=== PATIENT | female | born 1995 | race Caucasian/White ===

== ENCOUNTER 2023-08-29 15:58 | Emergency (ER) | payer MEDICAID, SELFPAY ==
[2023-08-29 16:03] VITALS: BP 123/79; PULSE 104; RESP 16; TEMP 37.2; O2SAT 98; BMI 28.5
--- NOTE | 2023-08-29 17:29 | ED_ITS ---
HPI - Skin/Abscess/Foreign Bdy General: Chief complaint: Skin/Abscess/Foreign Body Stated complaint: left knee pain, rednees, pus Time Seen by Provider: 08/29/23 17:23 Source: patient Mode of arrival: ambulatory Limitations: no limitations History of Present Illness: 27-year-old female who states she has garcia d an abscess to her left knee for the last 4 to 5 days states she was prescribed antibiotics but they got stolen. She has not had it incised either she has had some drainage to the site denies any fever she has had redness some slight pain but she denies any pain with ambulation. Denies any injuries Associated symptoms: Deny chills, fever(s), nausea or vomiting Review of Systems Const: Denies: fever(s), chills, body aches or change in appetite ENMT: Denies: throat pain or dental pain Card: Denies: chest pain Resp: Denies: dyspnea GI: Denies: abdominal pain, nausea, vomiting or diarrhea Musc: Denies: neck pain or back pain Skin/Breast: Reports: erythema; Denies: rash Neuro: Denies: headache(s) PFSH ED PFSH: Social History Smoking and tobacco/nicotine status: current every day tobacco/nicotine user cigarettes Packs smoked per day: 0.5 Alcohol intake: never Substance/Drug Use: current Substance/Drug use frequency: few times a month Female Reproductive History: Date of last menstrual period: 08/15/23 Physical Exam Const: COMMON NORMALS: no acute distress, patient oriented x3 and healthy appearing HENMT: COMMON NORMALS: normocephalic and atraumatic HEAD & SCALP: normocephalic and atraumatic Neck/C-Spine: COMMON NORMALS: full ROM and supple Chest: COMMONS NORMALS: normal inspection of the chest and normal palpation of entire chest wall Resp: COMMON NORMALS: normal respiratory effort Cardio: COMMON NORMALS: regular rate, regular rhythm and No murmurs present (Cardio) RATE: regular rate RHYTHM: regular rhythm Extremity: NARRATIVE EXTREMITY EXAM: Abscess noted to left knee the anterior portion does have some drainage from erythema any pain with range of motion no signs of septic joint Neuro: COMMON NORMALS: patient oriented x3, moves all extremities and no focal motor deficits Psych: COMMON NORMALS: mental status grossly normal, Normal thought process present and cooperative THOUGHT PROCESS: Normal thought process present Skin: COMMON NORMALS: no rashes or lesions noted and no wounds GENERAL SKIN EXAM: no rashes or lesions noted Procedures Abscess I/D Site: lower extremity Side (if applicable): left Local Anesthetic: lidocaine 1% Amount of anesthesia used (mL): 8 Technique: incised with #11 blade Irrigation: No Packing used?: none Course Vital Signs: Vital signs: Vital Signs Temperature 98.9 F 08/29/23 16:03 Pulse Rate 104 H 08/29/23 16:03 Respiratory Rate 16 08/29/23 16:03 Blood Pressure 123/79 08/29/23 16:03 Pulse Oximetry 98 08/29/23 16:03 Oxygen Delivery Me thod Room Air 08/29/23 16:03 MDM - Skin/Abscess/Foreign Bdy Medicial Decision Making Patient presents here with abscess to left knee she has no signs of a septic joint did incise and drain it we will place her on clindamycin she is to follow- up with her PCP return if worsening she understands agrees to plan. Medical Records I reviewed the patient's medical records. No radiology studies performed this visit Discharge Plan Discharge Patient Disposition: Home Clinical Impression: Abscess of knee, left Condition: Stable Prescriptions: New hydrocodone-acetaminophen 5-325 mg tablet 1 tab PO Q6H PRN (Reason: pain) Qty: 14 0RF ondansetron 4 mg tablet,disintegrating 4 mg PO Q6H PRN (Reason: nausea and vomiting) Qty: 14 0RF clindamycin HCl 300 mg capsule 300 mg PO Q8H 7 Days Qty: 21 0RF Discharge Orders: Discharge ED (Routine); Ordered 08/29/23 Ordered By: Clarence Metzger Discharge Diet: Advance as tolerated Discharge Activity: Resume usual activity Patient Instructions: Abscess (ED), Opioid Safety Coding Level of Care Code ED [employer] for Agustín Logan
[2023-08-29] MEDS: HYDROcodone-acetaminophen 7.5-325 mg Tablet 1 TAB PO (17:53)
[2023-08-29] MEDS: cefTRIAXone 1,000 MG in water for injection-sterile 2.1 ML 0.100000000000000006 MG IM (17:53)
[2023-08-29 18:16] VITALS: BP 128/85; PULSE 98; RESP 16; O2SAT 99
== END 2023-08-29 18:16 | disposition home or self-care (01) ==
PROVIDERS: Emergency Provider Emergency Medicine
DX: L02.416 Cutaneous abscess of left lower limb (principal); F17.210 Nicotine dependence, cigarettes, uncomplicated
CPT/HCPCS: 10060; 96372; 99284; J0696